=== PATIENT | male | born 1985 | race Two or more races ===

== ENCOUNTER 2021-09-12 16:17 | Emergency (ER) | payer OTHER, SELFPAY ==
[2021-09-12 16:29] VITALS: BP 115/46; PULSE 67; RESP 16; TEMP 36.3; O2SAT 99; BMI 23.6
--- NOTE | 2021-09-12 16:32 | ED.GENADULT ---
HPI - General Adult General Chief complaint: Animal Bite Stated complaint: TICK BITE,IN [facility] PER EMS Time Seen by Provider: 09/12/21 16:32 History of Present Illness HPI narrative: Patient complains of a tick bite to the left side of his abdomen that is been there for several days, no fever no chills no rash Related Data Allergies Allergy/AdvReac Type Severity Reaction Status Date / Time No Known Allergies Allergy Verified 09/12/21 16:29 Review of Systems Review of Systems: Positive for tick bite Negatives no fever no chills no rash no sore throat no runny nose no cough no joint pains no joint swelling Yes all other systems are reviewed and are negative PMFSH Past Medical History Source: nursing notes reviewed Social History Social History Advance Directives: No Advance Directives Information Provided: No Physical Exam ED Vital Signs: Vital Signs - 24 hr 09/12/21 16:29 Temperature 97.3 F Pulse Rate 67 Respiratory Rate 16 Blood Pressure 115/46 L Pulse Oximetry 99 BMI result Body Mass Index 23.6 General appearance is no acute distress Head is normocephalic atraumatic Neck is supple Respiratory no distress Extremities full range of motion x4 Skin on the left lower abdomen there is of mildly embedded tick Course Course Course Narrative: Take is removed completely with a tweezers, there is no rash no evidence of active Lyme and the patient is discharged after getting a prophylactic dose of doxycycline Discharge Plan Discharge Clinical Impression: Tick bite Patient Disposition: Home, Self-Care Additional Instructions: I removed the tick from her belly There is no sign of Lyme disease now or any infection around the tick bite Because the tick was on for a long time there is a risk of at your exposed to Lyme disease so we gave you a dose of doxycycline which is very effective for preventing Lyme disease Interventions: ED Discharge Assessment Last Done: 09/12/21 17:19 Discharge Date/Time: 09/12/21 18:21
== END 2021-09-12 18:21 | disposition home or self-care (01) ==
PROVIDERS: Emergency Provider Internal Medicine
DX: S30.861A Insect bite (nonvenomous) of abdominal wall, initial encounter (principal); W57.XXXA Bitten or stung by nonvenomous insect and other nonvenomous arthropods, initial encounter; Y93.9 Activity, unspecified; Y92.9 Unspecified place or not applicable; Y99.9 Unspecified external cause status
CPT/HCPCS: 99283